=== PATIENT | female | born 1990 | race Caucasian/White ===

== ENCOUNTER 2019-02-09 18:52 | Observation (INO) | payer BC ==
[2019-02-09] MEDS ORDERED: MISOPROSTOL 100 MCG TAB VAG PRN (19:34)
[2019-02-09] MEDS ORDERED: TERBUTALINE SULFATE 1 MG/ML SOL SC PRN (19:34)
[2019-02-09] MEDS: SODIUM CHLORIDE 0.9% FLUSH 10 ML SOL IV SCH (20:43)
[2019-02-09] MEDS ORDERED: METHYLERGONOVINE MALEATE 0.2 MG/ML SOL IM PRN (20:58)
[2019-02-09] MEDS ORDERED: CARBOPROST 250 MCG/ML SOL IM PRN (20:58)
[2019-02-09] MEDS ORDERED: SODIUM CHLORIDE 0.9% FLUSH 10 ML SOL IV PRN (20:58)
[2019-02-09] MEDS ORDERED: OXYTOCIN 10000 MU/ML SOL IM PRN (20:58)
[2019-02-09] MEDS ORDERED: LACTATED RINGERS 1,000 ML IV PRN (20:58)
[2019-02-09] MEDS ORDERED: MEPIVACAINE HCL 1% MPF 30 ML/VIAL SOL INFIL PRN (20:58)
[2019-02-09] MEDS ORDERED: FENTANYL 100MCG/2ML SOL IV PRN (20:58)
[2019-02-09] MEDS: MISOPROSTOL 100 MCG TAB PO PRN ×2 (21:03→23:55)
[2019-02-09 21:26] LABS: BASOPHILS % (AUTO) 1 % (0-3); EOSINOPHILS % (AUTO) 1 % (0-9); HEMATOCRIT 36 % (35-47); HEMOGLOBIN 11.5 gm/dl (12.0-15.5); LYMPHOCYTES % (AUTO) 16.1 % (10-50); MEAN CORPUSCULAR HEMOGLOBIN 25.2 pg (27.0-32.0); MEAN CORPUSCULAR HGB CONC 31.7 gm/dl (32.0-36.0); MONOCYTES % (AUTO) 7.3 % (0-12); NEUTROPHILS % (AUTO) 75.6 % (37-80)
[2019-02-09 21:29] LABS: MEAN CORPUSCULAR VOLUME 79 fL (81-99)
[2019-02-10] MEDS: MISOPROSTOL 100 MCG TAB PO PRN ×3 (03:16→09:59)
[2019-02-10] MEDS: SODIUM CHLORIDE 0.9% FLUSH 10 ML SOL IV SCH ×2 (03:16→12:24)
[2019-02-10 07:00] VITALS: O2SAT 98
[2019-02-10] MEDS ORDERED: MISOPROSTOL 100 MCG TAB PO PRN (09:50)
[2019-02-10 13:40] VITALS: BP 141/88; PULSE 83; RESP 20; TEMP 97.6
== END 2019-02-10 14:32 | disposition home or self-care (01) ==
LOC: OB 18:52
PROVIDERS: ADMIT Family Medicine; ATTEND Family Medicine
DX: Z34.03 Encounter for supervision of normal first pregnancy, third trimester (principal); Z3A.40 40 weeks gestation of pregnancy
CPT/HCPCS: 59025; 85025; J3105; A9270-GY

== ENCOUNTER 2019-02-12 19:05 | Inpatient (IN) | payer BC ==
[2019-02-12] MEDS ORDERED: METHYLERGONOVINE MALEATE 0.2 MG/ML SOL IM PRN (19:10)
[2019-02-12] MEDS ORDERED: OXYTOCIN 10000 MU/ML SOL IM PRN (19:10)
[2019-02-12] MEDS ORDERED: CARBOPROST 250 MCG/ML SOL IM PRN (19:10)
[2019-02-12] MEDS ORDERED: FENTANYL 100MCG/2ML SOL IV PRN (19:10)
[2019-02-12] MEDS ORDERED: SODIUM CHLORIDE 0.9% FLUSH 10 ML SOL IV PRN (19:10)
[2019-02-12] MEDS ORDERED: TERBUTALINE SULFATE 1 MG/ML SOL SC PRN (19:10)
[2019-02-12] MEDS ORDERED: MEPIVACAINE HCL 1% MPF 30 ML/VIAL SOL INFIL PRN (19:10)
[2019-02-12] MEDS ORDERED: LACTATED RINGERS 1,000 ML IV PRN (19:10)
[2019-02-12] MEDS: SODIUM CHLORIDE 0.9% FLUSH 10 ML SOL IV SCH (20:30)
[2019-02-12 20:42] LABS: BASOPHILS % (AUTO) 1 % (0-3); EOSINOPHILS % (AUTO) 0 % (0-9); HEMATOCRIT 36 % (35-47); HEMOGLOBIN 11.6 gm/dl (12.0-15.5); LYMPHOCYTES % (AUTO) 15.9 % (10-50); MEAN CORPUSCULAR HEMOGLOBIN 26.1 pg (27.0-32.0); MEAN CORPUSCULAR HGB CONC 32.4 gm/dl (32.0-36.0); MONOCYTES % (AUTO) 5.9 % (0-12)
[2019-02-12 20:58] LABS: MEAN CORPUSCULAR VOLUME 81 fL (81-99)
[2019-02-13] MEDS: SODIUM CHLORIDE 0.9% FLUSH 10 ML SOL IV SCH ×3 (03:00→20:06)
[2019-02-13] MEDS ORDERED: OXYTOCIN 10000 MU/ML 20,000 MU in LACTATED RINGERS 1,000 ML IV SCH (05:00)
[2019-02-13] MEDS ORDERED: LACTATED RINGERS 1,000 ML IV SCH (05:00)
[2019-02-13] MEDS ORDERED: TERBUTALINE SULFATE 1 MG/ML SOL SC PRN ×2 (05:00→17:23)
[2019-02-13] MEDS ORDERED: OXYTOCIN 10000 MU/ML SOL ONE (05:04)
[2019-02-13] MEDS ORDERED: LACTATED RINGERS 1,000 ML ONE (05:04)
[2019-02-13] MEDS: MISOPROSTOL 100 MCG TAB PO SCH (22:16)
[2019-02-14 00:29] LABS: ABO B; ANTIBODY SCREEN Negative; RH TYPE Positive
[2019-02-14] MEDS: MISOPROSTOL 100 MCG TAB PO SCH (01:18)
[2019-02-14] MEDS ORDERED: MISOPROSTOL 100 MCG TAB PO ONE (04:15)
[2019-02-14] MEDS: SODIUM CHLORIDE 0.9% FLUSH 10 ML SOL IV SCH ×3 (04:18→18:23)
[2019-02-14] MEDS ORDERED: OXYTOCIN 10000 MU/ML 20,000 MU in LACTATED RINGERS 1,000 ML IV SCH (18:15)
[2019-02-14] MEDS ORDERED: LACTATED RINGERS 1,000 ML IV SCH (18:15)
[2019-02-15] MEDS: LACTATED RINGERS 1,000 ML IV SCH ×2 (00:10→00:37)
[2019-02-15] MEDS ORDERED: NALOXONE HYDROCHLORIDE 0.4 MG/ML SOL IV PRN (00:15)
[2019-02-15] MEDS ORDERED: LACTATED RINGERS 1,000 ML IV SCH (00:15)
[2019-02-15] MEDS ORDERED: DIPHENHYDRAMINE 50 MG/ML SOL IV PRN (00:15)
[2019-02-15] MEDS ORDERED: NALBUPHINE HCL 20 MG/ML SOL IV PRN (00:15)
[2019-02-15] MEDS ORDERED: EPHEDRINE SULFATE 50 MG/ML SOL IV PRN (00:15)
[2019-02-15] MEDS ORDERED: FENTANYL 250 MCG/ 5ML SOL ONE (00:25)
[2019-02-15] MEDS ORDERED: ROPIVACAINE HYDROCHLORIDE 5 MG/ML SOL ONE (00:26)
[2019-02-15] MEDS ORDERED: LIDOCAINE 1% W/EPI MPF 30 ML SOL ONE (00:26)
[2019-02-15] MEDS: SODIUM CHLORIDE 0.9% FLUSH 10 ML SOL IV SCH ×3 (04:43→20:55)
[2019-02-15] MEDS ORDERED: TEMAZEPAM 15MG 15 MG CAP PO PRN (08:01)
[2019-02-15] MEDS ORDERED: FLEET ENEMA PR PRN (08:01)
[2019-02-15] MEDS ORDERED: BISACODYL 10 MG SUP PR PRN (08:01)
[2019-02-15] MEDS ORDERED: APAP/HYDROCODONE 1 EACH TABLET PO PRN (08:01)
[2019-02-15] MEDS ORDERED: WITCH HAZEL 1 EA PAD TOP PRN (08:01)
[2019-02-15] MEDS ORDERED: METHYLERGONOVINE MALEATE 0.2 MG TAB PO PRN (08:01)
[2019-02-15] MEDS: MULTIVITAMIN2 1 EA TAB PO SCH (11:14)
[2019-02-15] MEDS: DOCUSATE SODIUM 100 MG SGL PO SCH ×2 (11:14→20:12)
[2019-02-15] MEDS: FOLIC ACID 1 MG TAB PO SCH (11:14)
[2019-02-15] MEDS: BENZOCAINE/MENTHOL 1 SPR TOP PRN (17:20)
[2019-02-15] MEDS: IBUPROFEN 600 MG TAB PO PRN (17:20)
[2019-02-15 23:37] VITALS: O2SAT 98
[2019-02-16] MEDS: IBUPROFEN 600 MG TAB PO PRN ×3 (01:47→21:36)
[2019-02-16] MEDS: BENZOCAINE/MENTHOL 1 SPR TOP PRN (03:00)
[2019-02-16] MEDS: DOCUSATE SODIUM 100 MG SGL PO SCH ×2 (10:01→21:36)
[2019-02-16] MEDS: FOLIC ACID 1 MG TAB PO SCH (10:01)
[2019-02-16] MEDS: MULTIVITAMIN2 1 EA TAB PO SCH (10:01)
[2019-02-17 07:47] VITALS: RESP 20; TEMP 97.7
[2019-02-17] MEDS: FOLIC ACID 1 MG TAB PO SCH (08:46)
[2019-02-17] MEDS: DOCUSATE SODIUM 100 MG SGL PO SCH (08:46)
[2019-02-17] MEDS: IBUPROFEN 600 MG TAB PO PRN (08:46)
[2019-02-17] MEDS: MULTIVITAMIN2 1 EA TAB PO SCH (08:46)
[2019-02-17 15:05] VITALS: BP 130/82; PULSE 86
== END 2019-02-17 15:30 | disposition home or self-care (01) | DRG 560 ==
LOC: OB 19:05 → OBSVTOIN 19:05
PROVIDERS: ADMIT Family Medicine; ATTEND Family Medicine
PROC: 0U7C7ZZ Dilation of Cervix, Via Natural or Artificial Opening (ICD-10-PCS; 2019-02-12)
PROC: 3E033VJ Introduction of Other Hormone into Peripheral Vein, Percutaneous Approach (ICD-10-PCS; 2019-02-13)
PROC: 10907ZC Drainage of Amniotic Fluid, Therapeutic from Products of Conception, Via Natural or Artificial Opening (ICD-10-PCS; 2019-02-14)
PROC: 0U7C7ZZ Dilation of Cervix, Via Natural or Artificial Opening (ICD-10-PCS; 2019-02-14)
PROC: 10E0XZZ Delivery of Products of Conception, External Approach (ICD-10-PCS; principal; 2019-02-15)
PROC: 6A550ZT Pheresis of Cord Blood Stem Cells, Single (ICD-10-PCS; 2019-02-15)
PROC: 0KQM0ZZ Repair Perineum Muscle, Open Approach (ICD-10-PCS; 2019-02-15)
DX: O63.0 Prolonged first stage (of labor) (principal); O61.1 Failed instrumental induction of labor; Z37.0 Single live birth; Z3A.41 41 weeks gestation of pregnancy; O36.60X0 Maternal care for excessive fetal growth, unspecified trimester, not applicable or unspecified
CPT/HCPCS: 36415; 59025; 85018; 85025; 86850; 86900; 86901; J0670; J2210; J2590; J2795; J3010; A9270-GY